=== PATIENT | female | born 1995 | race Caucasian/White ===

== ENCOUNTER 2022-01-23 17:25 | Observation (INO) ==
[2022-01-23] MEDS ORDERED: Gadolinium Contrast Agent (WT Based) IV PRN (18:39)
[2022-01-23] MEDS ORDERED: Ibuprofen 600 MG TABLET PO ONE (20:45)
[2022-01-23 21:44] LABS: Basophils % 0.1 %; Eosinophils % 0.5 %; Hematocrit 34.9 % (35.3-44.9); Immature Granulocytes % 0.3 % (0-4); Lymphocytes # 2.5 K/mcL (0.6-4.6); Lymphocytes % 33.7 %; Mean Corpuscular HGB Conc 34.4 g/dL (31.6-35.5); Mean Corpuscular Hemoglobin 29.3 pg (28.0-33.3); Mean Corpuscular Volume 85.3 fL (83.0-100.0); Monocytes # 0.6 K/mcL (0.0-1.3); Monocytes % 7.7 %; Neutrophils # 4.3 K/mcL (1.6-8.9); Platelet Count 232 K/mcL (140-400); Red Blood Count 4.09 M/mcL (3.82-4.97); Red Cell Distribution Width 12.3 % (11.5-14.5); Segmented Neutrophils % 57.7 %; White Blood Count 7.4 K/mcL (4.3-11.1)
[2022-01-23 21:49] LABS: BUN/Creatinine Ratio 15 (6-26); Blood Urea Nitrogen 14 mg/dL (6-20); Calcium 9.1 mg/dL (8.6-10.3); Carbon Dioxide 24 mEq/L (23-29); Chloride 106 mEq/L (98-107); Glucose 100 mg/dL (70-105); Osmolality,Calculated 289 (280-300); Potassium 3.6 mEq/L (3.5-5.1); Sodium 139 mEq/L (136-145); eGFR For African Americans > 60 (> 60); eGFR For Non-African Americans > 60 (> 60)
[2022-01-24] MEDS ORDERED: Ondansetron 4 MG/2 ML VIAL IVP PRN
[2022-01-24] MEDS ORDERED: Naloxone 0.4 MG/ML INJ IVP PRN
[2022-01-24] MEDS ORDERED: Acetaminophen 325 MG TABLET PO PRN
[2022-01-24] MEDS ORDERED: *HR* OxyCODONE Immed Rel 5 MG TABLET PO PRN (01:17)
[2022-01-24] MEDS: *HR* Enoxaparin 40 MG/0.4 ML SYRINGE SQ SCH ×2 (05:47→17:31)
[2022-01-24 06:28] LABS: Basophils % 0.2 %; Eosinophils # 0.1 K/mcL (0.0-0.6); Eosinophils % 1.1 %; Hematocrit 37.6 % (35.3-44.9); Hemoglobin 12.6 g/dL (11.5-15.4); Immature Granulocytes % 0.2 % (0-4); Immature Platelets 2.4 % (1.1-6.1); Lymphocytes % 46.1 %; Mean Corpuscular HGB Conc 33.5 g/dL (31.6-35.5); Mean Corpuscular Hemoglobin 29.1 pg (28.0-33.3); Mean Corpuscular Volume 86.8 fL (83.0-100.0); Mean Platelet Volume 9.8 fL (9.4-12.4); Monocytes # 0.4 K/mcL (0.0-1.3); Monocytes % 6.1 %; Platelet Count 199 K/mcL (140-400); Red Blood Count 4.33 M/mcL (3.82-4.97); Red Cell Distribution Width 12.3 % (11.5-14.5); Segmented Neutrophils % 46.3 %; White Blood Count 6.5 K/mcL (4.3-11.1)
[2022-01-24 06:30] LABS: INR 1.1; Prothrombin Time 11.9 Seconds (9.4-12.1)
[2022-01-24 06:47] LABS: BUN/Creatinine Ratio 17 (6-26); Blood Urea Nitrogen 15 mg/dL (6-20); Calcium 8.8 mg/dL (8.6-10.3); Carbon Dioxide 27 mEq/L (23-29); Chloride 106 mEq/L (98-107); Glucose 78 mg/dL (70-105); Magnesium 2.1 mg/dL (1.6-2.6); Osmolality,Calculated 290 (280-300); Phosphorous 4.6 mg/dL (2.7-4.5); Potassium 3.6 mEq/L (3.5-5.1); Sodium 140 mEq/L (136-145); eGFR For African Americans > 60 (> 60); eGFR For Non-African Americans > 60 (> 60)
[2022-01-24 07:07] LABS: Folate 16.8 ng/mL (3.0-16.0)
[2022-01-24] MEDS ORDERED: Cyanocobalamin (B-12) 1,000 MCG/ML VIAL SQ SCH (09:00)
[2022-01-24] MEDS: Cyanocobalamin (B-12) 1,000 MCG/ML VIAL SQ SCH (11:19)
[2022-01-24] MEDS: *HR* OxyCODONE Immed Rel 5 MG TABLET PO PRN ×2 (17:30→22:03)
[2022-01-24] MEDS: QUEtiapine Fumarate 100 MG TABLET PO SCH (22:04)
[2022-01-25] MEDS: *HR* Enoxaparin 40 MG/0.4 ML SYRINGE SQ SCH ×2 (05:12→16:55)
[2022-01-25] MEDS: *HR* OxyCODONE Immed Rel 5 MG TABLET PO PRN ×2 (05:13→16:55)
[2022-01-25 05:58] LABS: Basophils % 0.2 %; Eosinophils # 0.1 K/mcL (0.0-0.6); Eosinophils % 0.9 %; Hematocrit 37.5 % (35.3-44.9); Hemoglobin 12.4 g/dL (11.5-15.4); Immature Granulocytes % 0.2 % (0-4); Lymphocytes # 2.7 K/mcL (0.6-4.6); Lymphocytes % 41.8 %; Mean Corpuscular HGB Conc 33.1 g/dL (31.6-35.5); Mean Corpuscular Hemoglobin 28.6 pg (28.0-33.3); Mean Corpuscular Volume 86.6 fL (83.0-100.0); Mean Platelet Volume 8.9 fL (9.4-12.4); Monocytes # 0.5 K/mcL (0.0-1.3); Monocytes % 7.3 %; Neutrophils # 3.2 K/mcL (1.6-8.9); Platelet Count 212 K/mcL (140-400); Red Blood Count 4.33 M/mcL (3.82-4.97); Segmented Neutrophils % 49.6 %; White Blood Count 6.4 K/mcL (4.3-11.1)
[2022-01-25 06:21] LABS: BUN/Creatinine Ratio 12 (6-26); Blood Urea Nitrogen 11 mg/dL (6-20); Calcium 8.5 mg/dL (8.6-10.3); Carbon Dioxide 25 mEq/L (23-29); Chloride 105 mEq/L (98-107); Glucose 80 mg/dL (70-105); Osmolality,Calculated 282 (280-300); Potassium 3.7 mEq/L (3.5-5.1); Sodium 137 mEq/L (136-145); eGFR For African Americans > 60 (> 60); eGFR For Non-African Americans > 60 (> 60)
[2022-01-25 06:29] LABS: Thyroid Stimulating Hormone 7.607 mcIU/mL (0.340-5.600)
[2022-01-25] MEDS: Cyanocobalamin (B-12) 1,000 MCG/ML VIAL SQ SCH (08:34)
[2022-01-25] MEDS ORDERED: Levothyroxine Sodium 100 MCG VIAL IVP ONE (09:00)
[2022-01-25] MEDS: QUEtiapine Fumarate 100 MG TABLET PO SCH (22:23)
[2022-01-26] MEDS: *HR* OxyCODONE Immed Rel 5 MG TABLET PO PRN (05:30)
[2022-01-26] MEDS: *HR* Enoxaparin 40 MG/0.4 ML SYRINGE SQ SCH (05:30)
[2022-01-26] MEDS ORDERED: Levothyroxine 25 MCG TABLET PO SCH (06:30)
[2022-01-26 07:03] VITALS: TEMP 97.9
[2022-01-26 09:30] LABS: Bilirubin,Urine Negative (Negative); Blood,Urine Negative (Negative); Clarity,Urine Clear (Clear); Color,Urine Light-Yellow (Yellow); Glucose,Urine (UA) Normal (Normal); Ketones,Urine Negative (Negative); Leukocyte Esterase,Urine Negative (Negative); Nitrite,Urine Negative (Negative); PH,Urine 6.5 pH Units (5.0-8.0); Protein,Urine Negative (Neg-Trace); Urobilinogen,Urine Normal (Normal)
[2022-01-26] MEDS: Cyanocobalamin (B-12) 1,000 MCG/ML VIAL SQ SCH (09:39)
[2022-01-26 11:46] VITALS: BP 124/68; PULSE 84; O2SAT 97
== END 2022-01-26 13:43 | disposition home or self-care (01) ==
LOC: 3NENU 17:25 → EMEROOARM 17:25 → SUATTDRO 22:48 → 3NENU 23:50
PROVIDERS: ADMIT Student in an Organized Health Care Education/Training Program; ATTEND Pharmacist